=== PATIENT | male | born 1970 | race Caucasian/White ===

== ENCOUNTER → 2025-02-02 | Day surgery (SDC) | payer OTHER ==
[~2025-02-02] VITALS: Ht 177.8 cm; Wt 79.4 kg
[~2025-02-02] MED LIST: ACETAMINOPHEN 1000MG/100ML 100 ML IV ONE; BUPIVACAINE HCL/PF 0.5% (5MG/ML) 10ML ONE; CEFAZOLIN SODIUM 1000MG/VIAL ONE; DEXAMETHASONE 4MG/ML 1ML VIAL ONE; FAMOTIDINE 20MG/2ML VIAL IV ONE; HYDR-459 PO; HYDRALAZINE 20MG/ML VIAL IV PRN; HYDROMORPHONE HCL/PF 1MG/ML INJ IV PRN; HYDROMORPHONE HCL/PF 1MG/ML INJ ONE; KETOROLAC 30MG/ML VIAL ONE; LABETALOL 5MG/ML 4ML INJ IV PRN; LACTATED RINGERS 1,000 ML IV SCH; LIDOCAINE HCL 1% 10 MG/ML 10ML VIAL ONE; LOSA100T33 PO; MIDAZOLAM HCL 2 MG/2 ML VIAL ONE; OMEP40CA20 PO; ONDA4TAB50 PO; ONDANSETRON HCL 4MG/2ML INJ IV PRN; ONDANSETRON HCL 4MG/2ML INJ ONE; PHENYLEPHRINE HCL 10MG/ML 1ML IV ONE; PROPOFOL 200MG/20ML VIAL IV ONE; SKIN ADHESIVE 0.7 GM EA TOP ONE; TIZA-204 PO
[2025-02-02 11:37] VITALS: BP 132/88; PULSE 64; RESP 16
[2025-02-02] MEDS: HYDROMORPHONE HCL/PF 1MG/ML INJ IV PRN (11:37)
== END | disposition home or self-care (01) ==
LOC: OR 06:45
PROVIDERS: ATTEND Surgery
DX: K40.90 Unilateral inguinal hernia, without obstruction or gangrene, not specified as recurrent (principal); I10 Essential (primary) hypertension; K21.9 Gastro-esophageal reflux disease without esophagitis; F32.9 Major depressive disorder, single episode, unspecified; Z79.899 Other long term (current) drug therapy; Z98.890 Other specified postprocedural states
CPT/HCPCS: 49505; J0665; J0690; J1100; J1308; J1885; J2003; J2250; J2405; J2371; J2704; J1171; J7030; C1781; J0131